=== PATIENT | female | born 1965 | race Hispanic/Latino ===

== ENCOUNTER 2019-02-28 22:43 | Emergency (ER) | payer OTHER ==
[2019-02-28] MEDS ORDERED: IBUPROFEN 600 MG TABLET ONE (23:56)
== END 2019-03-01 00:04 | disposition home or self-care (01) ==
LOC: EDH 22:43
DX: S40.011A Contusion of right shoulder, initial encounter (principal); S80.11XA Contusion of right lower leg, initial encounter; S50.01XA Contusion of right elbow, initial encounter; L93.0 Discoid lupus erythematosus; Z88.8 Allergy status to other drugs, medicaments and biological substances; Z90.49 Acquired absence of other specified parts of digestive tract; Z90.710 Acquired absence of both cervix and uterus; W01.0XXA Fall on same level from slipping, tripping and stumbling without subsequent striking against object, initial encounter; Y93.89 Activity, other specified; Y92.89 Other specified places as the place of occurrence of the external cause; Y99.8 Other external cause status
CPT/HCPCS: 73030; 73080; 73502; 73562